=== PATIENT | female | born 1995 | race African-American/Black ===

== ENCOUNTER 2019-01-07 16:50 | Emergency (ER) | payer SELFPAY ==
[~2019-01-07] VITALS: Ht 167.6 cm; Wt 63.0 kg
[2019-01-07 16:59] VITALS: BP 127/84
[2019-01-07] MEDS ORDERED: PREDNISONE 20MG TABLET PO ONE (17:15)
== END 2019-01-07 17:49 | disposition home or self-care (01) ==
LOC: ER 16:50
DX: J45.901 Unspecified asthma with (acute) exacerbation (principal)
CPT/HCPCS: 99283; J7512